=== PATIENT | female | born 1965 | race Caucasian/White ===

== ENCOUNTER 2016-09-20 10:36 | Observation (INO) | payer OTHER ==
[~2016-09-20] VITALS: Ht 165.1 cm; Wt 85.0 kg
[~2016-09-20 10:36] MED LIST: ALLO100T PO; DIOV40TA PO
[2016-09-20 10:41] VITALS: BP 148/94; PULSE 90; RESP 14; TEMP 98.1; O2SAT 98
--- NOTE | 2016-09-20 11:23 | PD ---
HPI Chief Complaint: Cardiac Complaint Time Seen by Provider: 11:15 Travel History International Travel<30 days: No Contact w/Intl Traveler<30days: No Traveled to known affect area: No History of Present Illness HPI This is a 51-year-old female who has a history of chronic kidney disease and hypertension who presents to the emergency department with intermittent chest twinges that it may going on for about 3 weeks. She describes her discomfort as "a twinge sensation" all over her chest. She says it mostly happens at nighttime. She denies any associated shortness of breath, nausea or diaphoresis. Denies any radiation of the pain. She thinks it's related to stress because during the day she doesn't feel it but then at night when she gets to thinking about things that are going on the pain starts. She went to see her primary care physician this morning and he obtained an EKG and he felt like it was different than prior so he sent her to the emergency department. She did see Dr. Duval one year ago and had a stress test which was reassuring. She does not smoke. Her father had a history of having an AR at 55. PFSH Past Medical History Cancer: No Diabetes: No Glaucoma: No Hepatitis: No Hiatal Hernia: No Hypertension: Yes Thyroid Disease: No ?: Not Past Surgical History Abdominal Surgery: Yes (CHOLECYSTECTOMY) Genitourinary Surgery: Yes (TRANSOBTURATOR TAPE) Gynecologic Surgery: Yes (PERINEAL REPAIR (REVISION EPISIOTOMY)) Oral Surgery: Yes (DENTAL SX) Pacemaker: No Social History Alcohol Use: No Tobacco Use: No Substance Use: No Allergies-Medications (Allergen,Severity, Reaction): Coded Allergies: No Known Allergies (Verified , 09/20/16) Reported Meds & Prescriptions Reported Meds & Active Scripts Active Reported Allopurinol 100 Mg Tab 100 Mg PO DAILY Diovan (Valsartan) 40 Mg Tab 40 Mg PO DAILY Review of Systems Except as stated in HPI: all other systems reviewed are Neg Physical Exam Narrative GENERAL:Well appearing, no acute distress SKIN: Warm and dry. HEAD: Atraumatic. Normocephalic. EYES: Pupils equal and round. No injection or drainage. ENT: Moist mucous membranes NECK: Trachea midline. CARDIOVASCULAR: Regular rate and rhythm. No murmur appreciated. RESPIRATORY: Clear to auscultation. Breath sounds equal bilaterally. GASTROINTESTINAL: Abdomen soft, non-tender, nondistended. MUSCULOSKELETAL: No obvious deformities. NEUROLOGICAL: Awake and alert. No obvious cranial nerve deficits. Moving all extremities. PSYCHIATRIC: Appropriate mood and affect; insight and judgment normal. Data Data Last Documented VS Vital Signs Date Time Temp Pulse Resp B/P Pulse Ox O2 Delivery O2 Flow Rate FiO2 09/20/16 11:45 77 18 131/78 100 Room Air 09/20/16 10:41 98.1 Orders Electrocardiogram (09/20/16 11:22) Complete Blood Count With Diff (09/20/16 11:22) Comprehensive Metabolic Panel (09/20/16 11:22) Troponin I (09/20/16 11:22) Chest, Single Ap (09/20/16 11:22) Ecg Monitoring (09/20/16 11:22) Bilateral Bp Monitoring (09/20/16 11:22) Iv Access Insert/Monitor (09/20/16 11:22) Oximetry (09/20/16 11:22) Oxygen Administration (09/20/16 11:22) Aspirin Chew (Aspirin Chew) (09/20/16 11:30) Sodium Chloride 0.9% Flush (Ns Flush) (09/20/16 11:30) Admit Order (Ed Use Only) (09/20/16 12:40) Labs Laboratory Tests Test 09/20/16 11:43 White Blood Count 5.8 TH/MM3 Red Blood Count 4.02 MIL/MM3 Hemoglobin 12.8 GM/DL Hematocrit 37.5 % Mean Corpuscular Volume 93.2 FL Mean Corpuscular Hemoglobin 31.7 PG Mean Corpuscular Hemoglobin 34.0 % Concent Red Cell Distribution Width 14.0 % Platelet Count 188 TH/MM3 Mean Platelet Volume 9.5 FL Neutrophils (%) (Auto) 68.9 % Lymphocytes (%) (Auto) 20.5 % Monocytes (%) (Auto) 7.7 % Eosinophils (%) (Auto) 1.8 % Basophils (%) (Auto) 1.1 % Neutrophils # (Auto) 4.0 TH/MM3 Lymphocytes # (Auto) 1.2 TH/MM3 Monocytes # (Auto) 0.4 TH/MM3 Eosinophils # (Auto) 0.1 TH/MM3 Basophils # (Auto) 0.1 TH/MM3 CBC Comment DIFF FINAL Differential Comment Sodium Level 140 MEQ/L Potassium Level 4.0 MEQ/L Chloride Level 107 MEQ/L Carbon Dioxide Level 22.3 MEQ/L Anion Gap 11 MEQ/L Blood Urea Nitrogen 32 MG/DL Creatinine 2.32 MG/DL Estimat Glomerular Filtration 22 ML/MIN Rate Random Glucose 86 MG/DL Calcium Level 10.3 MG/DL Total Bilirubin 0.3 MG/DL Aspartate Amino Transf 22 U/L (AST/SGOT) Alanine Aminotransferase 27 U/L (ALT/SGPT) Alkaline Phosphatase 72 U/L Troponin I LESS THAN 0.02 NG/ML Total Protein 7.2 GM/DL Albumin 3.9 GM/DL MDM Medical Decision Making Medical Screen Exam Complete: Yes Emergency Medical Condition: Yes Interpretation(s) EKG: Normal sinus rhythm, frequent PACs No leukocytosis Renal insufficiency at baseline Troponin normal Chest x-ray: No acute process Differential Diagnosis Acute coronary syndrome, arrhythmia, electrolyte abnormality, pulmonary embolism , anxiety Narrative Course This is a 51-year-old female who presents to the emergency department having been sent in by her primary care physician due to an abnormal EKG. She says her doctor mention something about Q waves. She is placed on a monitor and an IV was established. Labs are obtained which were reassuring with a creatinine at baseline and a normal troponin. EKG demonstrates a sinus arrhythmia that appears to be normal sinus rhythm with frequent PACs. I don't appreciate a heart block. Patient's history is very atypical for acute coronary syndrome. She does have some Q waves in the inferior leads which I see on her prior EKG. She says she had a stress test last year which was normal. I think it's reasonable given her escalating symptoms and her primary care physician's concern to place her in the chest pain center for observation and cardiology consultation to ensure she doesn't require further risk stratification. Diagnosis Primary Impression: Chest pain Qualified Code: R07.9 - Chest pain, unspecified type Admitting Information Admitting Physician Requests: Zakia Elias MD Sep 20, 2016 11:23
[2016-09-20] MEDS ORDERED: SODIUM CHLORIDE 0.9% FLUSH 5 ML FLUSH IVF PRN (11:30)
[2016-09-20] MEDS ORDERED: ASPIRIN 81 MG CHEW TAB PO ONE (11:30)
[2016-09-20 11:45] VITALS: BP 131/78; PULSE 77; RESP 18; O2SAT 100
--- NOTE | 2016-09-20 11:46 | RADRPT ---
EXAM DATE/TIME: 09/20/2016 11:27 [facility] COMPARISON: No previous studies available for comparison. INDICATIONS : Chest pain at arrival. MEDICAL HISTORY : None. SURGICAL HISTORY : None. ENCOUNTER: Initial ACUITY: 1 day PAIN SCORE: 0/10 LOCATION: Bilateral chest FINDINGS: A single view of the chest demonstrates the lungs to be symmetrically aerated without evidence of mas s, infiltrate or effusion. The cardiomediastinal contours are unremarkable. Osseous structures are intact. CONCLUSION: 1. No acute cardiopulmonary findings. Spencer Osborn MD on September 20, 2016 at 11:44 Board Certified Radiologist. This report was verified electronically.
[2016-09-20 12:11] LABS: BASOPHIL # 0.1 TH/MM3 (0-0.2); BASOPHIL % 1.1 % (0.0-2.0); EOSINOPHIL # 0.1 TH/MM3 (0-0.4); EOSINOPHIL % 1.8 % (0.0-4.0); HEMATOCRIT 37.5 % (35.0-46.0); HEMO FLAGS DIFF FINAL; LYMPH % 20.5 % (9.0-44.0); LYMPHOCYTE # 1.2 TH/MM3 (1.0-4.8); MEAN CELL VOLUME 93.2 FL (80.0-100.0); MEAN CORPUSCULAR HEMOGLOBIN 31.7 PG (27.0-34.0); MONO % 7.7 % (0.0-8.0); NEUT % 68.9 % (16.0-70.0); PLATELET COUNT 188 TH/MM3 (150-450); RED BLOOD COUNT 4.02 MIL/MM3 (4.00-5.30); WHITE BLOOD COUNT 5.8 TH/MM3 (4.0-11.0)
[2016-09-20 12:28] LABS: ANION GAP 11 MEQ/L (5-15); AST (GOT) 22 U/L (15-37); BICARBONATE 22.3 MEQ/L (21.0-32.0); BLOOD UREA NITROGEN 32 MG/DL (7-18); CHLORIDE 107 MEQ/L (98-107); GLOMERULAR FILTRATION RATE 22 ML/MIN (>89); SODIUM (NA) 140 MEQ/L (136-145)
[2016-09-20 12:34] LABS: ALKALINE PHOSPHATASE 72 U/L (45-117); ALT (GPT) 27 U/L (10-53); TOTAL BILIRUBIN ADULT 0.3 MG/DL (0.2-1.0)
[2016-09-20 13:00] VITALS: BP 130/90; PULSE 84; RESP 16; RESP 6; O2SAT 100
[2016-09-20] MEDS ORDERED: GLUC15002 PO (13:02)
[2016-09-20] MEDS ORDERED: VALS1TAB64 PO (13:02)
[2016-09-20] MEDS ORDERED: AMLO5TAB2 PO (13:02)
[2016-09-20] MEDS ORDERED: NORE0.354 PO (13:02)
[2016-09-20] MEDS ORDERED: ALLO100T PO (13:02)
[2016-09-20] MEDS ORDERED: MULT-135 PO (13:02)
[2016-09-20] MEDS ORDERED: MISC1TAB PO (13:13)
[2016-09-20] MEDS ORDERED: VITA100018 PO (13:15)
[2016-09-20] MEDS ORDERED: ONDANSETRON HCL 4 MG/2 ML VIAL IV PRN (13:30)
[2016-09-20] MEDS ORDERED: NITROGLYCERIN 0.4 MG SL 25 TABS/BTL SL PRN (13:30)
[2016-09-20] MEDS ORDERED: ACETAMINOPHEN 500 MG CPLT PO PRN (13:30)
[2016-09-20 14:00] VITALS: BP 131/88; PULSE 82; RESP 16; O2SAT 100
[2016-09-20 14:17] VITALS: O2SAT 99
--- NOTE | 2016-09-20 14:25 | HHI.HP ---
[facility] Primary Care Physician Peña Michaud MD Chief Complaint Chest discomfort` History of Present Illness 51-year-old female presents to the emergency room by direction of her primary care provider. Patient has had intermittent "chest twinges" for the past 2 weeks. Notices chest "twinges" first thing upon awakening and then again before going to sleep. Does not have chest discomfort throughout the day. Discomfort is Nonexertional. There is no radiation of the pain. Location left anterior chest. No associated symptoms, breathing does not make pain better or worse, nor does position or movement. Precipitating factors could be related to stress. No known relieving factors. Stress test in spring and was unremarkable. Events leading to stress test included palpitations. She denies chest palpitations currently. She went to her primary care provider's office today for further evaluation of above. EKG completed in office was noted to have changes from a past EKG. Primary care provider instructed her to come to the ER for further evaluation. Review of Systems General: No fatigue,weakness, fever, chills, recent travel, or recent illness HEENT: Slight headache upon awakening past 2 weeks, no vision changes, no nasal congestion or drainage, no dysphasia CV: Chest discomfort as stated above. No current CP or pressure, no palpitations, intermittent leg pain, for dizziness RESP: No SOB, cough, wheeze, or recent URI GI: No nausea or vomiting, bowel changes, diarrhea, constipation, pain, distention, melena, blood in the stool. No change in appetite, no unintentional weight gain or weight loss : No dysuria, urgency, frequency, or hematuria. history of kidney stones in 2010. Reports stage III, chronic kidney disease. Early Learning Teacher is Dr. Crowley. EXT: Intermittent, dependent lower ankle edema, improves with elevation of lower extremities. Relates this to her kidney disease. No parathesias. MS: No discomfort or change in ROM NEURO: No change in memory, dizziness, difficulty with balance, LOC, motor/ sensory deficits PSYCH: No anxiety, depression. Reports situational stress with her job. SKIN: No rashes, no concerning lesions Past Family Social History Allergies: Coded Allergies: No Known Allergies (Verified , 09/20/16) Past Medical History HTN Gout CKD stage III Kidney [id number] Past Surgical History Cholecystectomy Breast [id number] Reported Medications Reported Meds & Active Scripts Active Reported Vitamin D3 (Cholecalciferol) 1,000 Unit Tab 1,000 Units PO DAILY Glucosamine Chondroitin T ([employer] Natural Products) 1 Tab Tab 1 Tab PO DAILY Multi Vitamin (Multiple Vitamin) 1 Tab Tab 1 Tab PO DAILY Amlodipine (Amlodipine Besylate) 5 Mg Tab 5 Mg PO DAILY Norethindrone 35 (Norethindrone) 0.35 Mg Tab 1 Tab PO DAILY Valsartan 80 Mg Tab 80 Mg PO DAILY Allopurinol 100 Mg Tab 100 Mg PO DAILY Active Ordered Medications Current Medications Medications (Trade) Dose Ordered Sig/Karsten Route Start Time Stop Time Status Last Admin (Tylenol) 500 mg Q4H PRN PO 09/20/16 13:30 (Zofran Inj) 4 mg Q6H PRN IV 09/20/16 13:30 (Nitrostat Sl) 0.4 mg Q5M PRN SL 09/20/16 13:30 (Aspirin) 325 mg DAILY PO 09/21/16 09:00 Family History Father had ND age 55, at age 67 from colon cancer. Mother at age 42 from kidney disease. Sister has had a kidney transplant Both of her children have kidney disease and follow with a systems program manager. No early onset family cardiovascular disease Social History She is a lifelong nonsmoker, denies any alcohol or illegal drug use. 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 Denies hypertension, diabetes, or hyperlipidemia. The past 6 months she has not been as active as she used to be. Has plans to increase her activity. Physical Exam Vital Signs Vital Signs Date Time Temp Pulse Resp B/P Pulse Ox O2 Delivery O2 Flow Rate FiO2 09/20/16 13:00 84 16 130/90 100 Room Air 09/20/16 11:45 77 18 131/78 100 Room Air 09/20/16 11:45 76 18 100 Room Air 09/20/16 10:41 98.1 90 14 148/94 98 Room Air Physical Exam GENERAL: Alert WN, WD, NAD, pleasant, female HEAD: NC, AT EYES: Sclera clear, conjunctiva without injection, pupils equal and round ENT: Mucous membranes pink and moist NECK: Supple, no masses, trachea midline CV: RRR, without murmur, rub, gallop, no JVD, S1-S2 no S3-S4. No carotid bruits RESP: Clear lungs throughout bilateral, no crackles, wheeze, rhonchi, symmetrical chest rise, nonlabored, able to speak in full sentences ABD: Soft, NT, ND, no masses, obese, positive bowel tones BACK: No scoliosis EXT: Pulses +24, slight dependent edema lower extremities MS: Normal tone 4 extremities, nontender, no obvious deformities, full range of motion NEURO: CN II through CN XII grossly intact, motor strength 5/5, gait WNL PSYCH: A+O 3, pleasant affect, appropriate speech, appropriate mood and affect , insight and judgment SKIN: Normal turgor, normal texture, no lesions, no rashes Laboratory Laboratory Tests Test 09/20/16 11:43 White Blood Count 5.8 Red Blood Count 4.02 Hemoglobin 12.8 Hematocrit 37.5 Mean Corpuscular Volume 93.2 Mean Corpuscular Hemoglobin 31.7 Mean Corpuscular Hemoglobin 34.0 Concent Red Cell Distribution Width 14.0 Platelet Count 188 Mean Platelet Volume 9.5 Neutrophils (%) (Auto) 68.9 Lymphocytes (%) (Auto) 20.5 Monocytes (%) (Auto) 7.7 Eosinophils (%) (Auto) 1.8 Basophils (%) (Auto) 1.1 Neutrophils # (Auto) 4.0 Lymphocytes # (Auto) 1.2 Monocytes # (Auto) 0.4 Eosinophils # (Auto) 0.1 Basophils # (Auto) 0.1 CBC Comment DIFF FINAL Differential Comment Sodium Level 140 Potassium Level 4.0 Chloride Level 107 Carbon Dioxide Level 22.3 Anion Gap 11 Blood Urea Nitrogen 32 Creatinine 2.32 Estimat Glomerular Filtration 22 Rate Random Glucose 86 Calcium Level 10.3 Total Bilirubin 0.3 Aspartate Amino Transf 22 (AST/SGOT) Alanine Aminotransferase 27 (ALT/SGPT) Alkaline Phosphatase 72 Troponin I LESS THAN 0.02 Total Protein 7.2 Albumin 3.9 Result Diagram: 09/20/16 1143 09/20/16 1143 Imaging Last Impressions Chest X-Ray 09/20/16 1122 Signed Impressions: Service Date/Time: Tuesday, September 20, 2016 11:27 - CONCLUSION: 1. No acute cardiopulmonary findings. Spencer Osborn MD Course First EKGnormal sinus rhythm, PACs, with Q waves in leads [address] or T-segment changes. Assessment and Plan Assessment and Plan #1 Chest painpatient admitted to chest pain center. Serial EKGs and cardiac enzymes ordered. She will be evaluated by Dr. Speedy Duval. Discussed with patient the possibility of completing another treadmill stress test. She is agreeable to this plan of care. #2 CKDfollow with systems program manager as previously instructed, no acute findings with creatinine level #3 Hypertensionreorder valsartan and amlodipine, will continue to monitor. 17:30-Treadmill completed, unremarkable without signs of ischemia. Discharged this evening. Follow with primary care provider within one week. Discussed with patient and she is agreeable to plan of care. Stable upon discharge. Code Status Full code Nannette Schultz Sep 20, 2016 14:25
[2016-09-20 15:25] LABS: APTT (PATIENT) 24.5 SEC (24.3-30.1); PROTHROMBIN TIME - PATIENT 10.5 SEC (9.8-11.6)
[2016-09-20 15:54] LABS: CREATINE KINASE 75 U/L (26-192)
[2016-09-20 16:01] VITALS: BP 127/84; PULSE 73; RESP 18; TEMP 96.4; O2SAT 99
--- NOTE | 2016-09-20 17:25 | HHI.DCPOC ---
Discharge Care Plan Diagnosis: (1) Atypical chest pain (2) CKD (chronic kidney disease) Goals to Promote Your Health * To prevent worsening of your condition and complications * To maintain your health at the optimal level Directions to Meet Your Goals Take your medications as prescribed Follow your dietary instruction Follow activity as directed Keep your appointments as scheduled Take your immunizations and boosters as scheduled If your symptoms worsen call your PCP, if no PCP go to Urgent Care Center or Emergency Room Smoking is Dangerous to Your Health. Avoid second hand smoke Call the 24-hour hour crisis hotline for domestic abuse at Nannette Schultz Sep 20, 2016 17:24
[2016-09-20] MEDS ORDERED: SODIUM CHLORIDE 0.9% FLUSH 5 ML FLUSH IVF SCH (21:00)
[2016-09-21] MEDS ORDERED: ALLOPURINOL 100 MG TAB PO SCH (09:00)
[2016-09-21] MEDS ORDERED: VALSARTAN 80 MG TAB PO SCH (09:00)
[2016-09-21] MEDS ORDERED: amLODIPine BESYLATE 5 MG TAB PO SCH (09:00)
[2016-09-21] MEDS ORDERED: ASPIRIN 325 MG TAB PO SCH (09:00)
[2016-09-21] MEDS ORDERED: MULTIVITAMIN TAB PO SCH (09:00)
--- NOTE | 2016-09-22 16:55 | EKG ---
Date Performed: 09/20/2016 Time Performed: 14:24:28 PTAGE: 51 years EKG: NORMAL Sinus rhythm BORDERLINE LEFT AXIS DEVIATION LOW QRS VOLTAGE IN PRECORDIAL LEADS ABNORMAL RHYTHM ECG PREVIOUS TRACING : 09/20/2016 11.28 DOCTOR: Speedy Duval Interpretating Date/Time 09/22/2016 16:52:30
--- NOTE | 2016-09-22 16:56 | EKG ---
Date Performed: 09/20/2016 Time Performed: 11:28:44 PTAGE: 51 years EKG: Sinus rhythm WITH MARKED SINUS ARRHYTHMIA BORDERLINE LEFT AXIS DEVIATION LOW QRS VOLTAGE IN PRECORDIAL LEADS [facility] ECG PREVIOUS TRACING : 03/03/2013 20.56 DOCTOR: Speedy Duval Interpretating Date/Time 09/22/2016 16:53:39
--- NOTE | 2016-09-22 17:15 | TR ---
Date Performed: 09/20/2016 Time Performed: 16:41:25 DOCTOR: Speedy Duval DRUG LIST: CLINICAL HISTORY: CHEST PAIN REASON FOR TEST: Chest pain REASON FOR ENDING: OBSERVATION: CONCLUSION: Jaime protocol completed. Stopped sec to reaching target heart rate and leg fatigue. Maximum YD=201 Target HR Achieved=89.0% Total Exercise Time=4:01 Max bp 158/92. No reprod chest disc omfort. Rare PVC. No st t seg changes to sugg ischemia. Normal bp response. Recovery quick and unrema rkable. COMMENTS: Patient exercised using the Jaime protocol. No electrocardiographic changes were seen to suggest ischemia. Hemodynamic response to exercise was normal. No significant arrhythmia was prese nt.
== END 2016-09-20 18:43 | disposition home or self-care (01) ==
LOC: NEPE 10:36 → NEDA 12:41 → NEPGCP 14:57
PROVIDERS: ADMIT Internal Medicine Cardiovascular Disease; ATTEND Internal Medicine Cardiovascular Disease
DX: R07.89 Other chest pain (principal); I12.9 Hypertensive chronic kidney disease with stage 1 through stage 4 chronic kidney disease, or unspecified chronic kidney disease; N18.3 Chronic kidney disease, stage 3 (moderate); M10.9 Gout, unspecified; Z82.49 Family history of ischemic heart disease and other diseases of the circulatory system; Z80.0 Family history of malignant neoplasm of digestive organs; Z84.1 Family history of disorders of kidney and ureter
CPT/HCPCS: 71010; 80053; 82550; 84484; 85025; 85610; 85730; 93005; 93017; 99285; G0378